=== PATIENT | male | born 1990 | race American Indian/Alaskan Native ===

== ENCOUNTER 2021-12-30 11:38 | Emergency (ER) | payer SELFPAY ==
[2021-12-30] MEDS ORDERED: LIDOCAINE-MPF (1%) 10 MG/1 ML VIAL 5 ML INFILTRATI ONE (13:26)
--- NOTE | 2021-12-30 13:27 | Emergency Department Report ---
ED Dysuria HPI - HPI Stated Complaint: PENIS IRRITATION Duration: 2 Days Location of Discomfort: Suprapubic Severity: Mild Symptoms: Dysuria: Yes, Frequency: No, Suprapubic Pain: No, Flank Pain: No, Fever: No, Hematuria: No, Abdominal Pain: No, Previous UTI's: No Other History: 31 YO COMES TO ER WITH PENILE D/C CO FOR STD. NO ABD PAIN. NO TESTICULAR PAIN. NO FEVER. AMBULATORY AND NON ILL APPEARING ON EXAM ED Review of Systems ROS: Stated complaint: PENIS IRRITATION Other details as noted in HPI Comment: All other systems reviewed and negative ED Past Medical Hx - Past Medical History Previous Medical History?: No - Surgical History Past Surgical History?: No - Family History Family history: no significant - Social History Smoking Status: Current Every Day Smoker Substance Use Type: None - Medications Home Medications: Home Medications Medication Instructions Recorded Confirmed Last Taken Type Azithromycin [Zithromax Z-WESTON] 1,000 mg PO ONCE #4 12/30/21 Unknown Rx metroNIDAZOLE [Flagyl] 500 mg PO ONCE #4 tab 12/30/21 Unknown Rx Dysuria Exam - Exam General: Vital signs noted. No distress. Alert and acting appropriately. Exam: Yes Moist Mucous Membranes, No CVA Tenderness, No Abdominal Tenderness, No Rigidity or Guarding ED Medical Decision Making - Medical Decision Making Vital Signs 12/30/21 13:38 Temperature 98.3 F Pulse Rate 55 L Respiratory 18 Rate Blood Pressure 121/82 [Right] O2 Sat by Pulse 100 Oximetry EMPIRIC TREATMENT FOR STD GIVEN SYMPTOMS. ROCEPHIN IM IN ER AZITHRO AND FLAGYL RX GIVEN SAFE SEX DISCUSSED DC HOME WITH DC PLAN OF CARE INCLUDING DIET, MEDS, ACTIVITY AND FOLLOW UP. HE VERBALIZES UNDERSTANDING OF PLAN OF CARE - Differential Diagnosis STD Critical care attestation.: If time is entered above; I have spent that time in minutes in the direct care of this critically ill patient, excluding procedure time. ED Disposition Clinical Impression: Concern about STD in male without diagnosis Disposition: 01 HOME / SELF CARE / HOMELESS Is pt being admited?: No Does the pt Need Aspirin: No Condition: Stable Additional Instructions: TAKE ALL MEDS TODAY Prescriptions: metroNIDAZOLE [Flagyl] 500 mg PO ONCE #4 tab Azithromycin [Zithromax Z-WESTON] 1,000 mg PO ONCE #4 Referrals: JERONIMO DONALDSON MD [Primary Care Provider] - 3-5 Days Time of Disposition: 13:25
[2021-12-30 13:39] VITALS: BP 121/82
== END 2021-12-30 16:43 | disposition home or self-care (01) ==
LOC: ED 11:38
DX: Z20.2 Contact with and (suspected) exposure to infections with a predominantly sexual mode of transmission (principal); F17.290 Nicotine dependence, other tobacco product, uncomplicated
CPT/HCPCS: 96372; 99282; J0696; J3490